=== PATIENT | female | born 1960 | race Caucasian/White ===

== ENCOUNTER 2018-04-21 16:18 | Emergency (ER) | payer OTHER ==
[~2018-04-21] VITALS: Ht 170.2 cm; Wt 60.5 kg
[~2018-04-21 16:18] MED LIST: BENA25TA8 PO; FEXO60TA PO; MEDR4PAK3 PO
[2018-04-21 16:25] VITALS: BP 151/82; PULSE 86; RESP 18; TEMP 98.3; O2SAT 97
--- NOTE | 2018-04-21 16:52 | PD ---
HPI Chief Complaint: Allergic/Adverse Reaction Time Seen by Provider: 16:37 Travel History International Travel<30 days: No Contact w/Intl Traveler<30days: No Traveled to known affect area: No History of Present Illness HPI Patient presents to the emergency department with neck swelling in the last hour. States that she had a CT of abdomen and pelvis done yesterday and was premedicated secondary to allergy to iodine. Advises that she was given 3 doses of prednisone at 13 hours, 7 hours, and 1 hour prior to procedure, as well as 2 Benadryl 25 mg tablets 1 hour ahead of scan. She denies sore throat, cough, rhinorrhea cough rash, drooling, shortness of breath, voice change, pruritus, fever, chills, no exposure to pets, no change in soaps/washing powder/ uterine/perfume. PFSH Past Medical History Hx Anticoagulant Therapy: No Cardiovascular Problems: Yes (HTN) Diabetes: No Diminished Hearing: No GERD: Yes Hypertension: Yes Ulcer: Yes Menopausal: Yes Dilation and Curettage (D&C): Yes Past Surgical History Section: Yes Gynecologic Surgery: Yes (MULTIPLE D&C'S, UTERINE ABLATION) Hysterectomy: No Social History Alcohol Use: Yes (OCCASIONAL) Tobacco Use: Yes (1 PPD) Substance Use: Yes Allergies-Medications (Allergen,Severity, Reaction): Coded Allergies: amitriptyline (Unverified Allergy, Severe, Anaphylaxis, 04/21/18) gabapentin (Unverified Allergy, Unknown, Anaphylaxis, 04/21/18) iodine (Unverified Allergy, Unknown, Hypertension, 04/21/18) potassium iodide (Unverified Allergy, Unknown, Hypertension, 04/21/18) povidone-iodine (Unverified Allergy, Unknown, Hypertension, 04/21/18) sodium iodide (Unverified Allergy, Unknown, Hypertension, 04/21/18) sodium iodide (Unverified Allergy, Unknown, Hypertension, 04/21/18) Reported Meds & Prescriptions Reported Meds & Active Scripts Active Ranitidine (Ranitidine HCl) 150 Mg Tab 150 Mg PO BID 5 Days Prednisone 20 Mg Tab 40 Mg PO DAILY 5 Days Take 40 mg (2 tablets) daily for 5 days Reported Glucosamine 1,500 Mg Tab 1,500 Mg PO DAILY Vitamin C (Ascorbic Acid) 250 Mg Chew 250 Mg CHEW DAILY Multi-Vitamin Daily (Multiple Vitamin) 1 Tab Tab 1 Tab PO DAILY Montelukast (Montelukast Sodium) 10 Mg Tab 10 Mg PO HS Metoprolol Tartrate 25 Mg Tab 25 Mg PO BID Fenofibrate 160 Mg Tab 160 Mg PO DAILY Review of Systems Except as stated in HPI: all other systems reviewed are Neg Physical Exam Narrative GENERAL: No acute distress. SKIN: Focused skin assessment warm/dry. HEAD: Atraumatic. Normocephalic. EYES: Pupils equal and round. No scleral icterus. No injection or drainage. ENT: No nasal bleeding or discharge. Mucous membranes pink and moist. No exudate, no uvula swelling. NECK: Trachea midline. No JVD. Positive anterior cervical lymphadenopathy ( swelling and tenderness to palpation). CARDIOVASCULAR: Regular rate and rhythm. No murmur appreciated. RESPIRATORY: No accessory muscle use. Clear to auscultation. Breath sounds equal bilaterally. GASTROINTESTINAL: Abdomen soft, non-tender, nondistended. Hepatic and splenic margins not palpable. MUSCULOSKELETAL: No obvious deformities. No clubbing. No cyanosis. No edema. NEUROLOGICAL: Awake and alert. No obvious cranial nerve deficits. Motor grossly within normal limits. Normal speech. PSYCHIATRIC: Appropriate mood and affect; insight and judgment normal. Data Data Last Documented VS Vital Signs Date Time Temp Pulse Resp B/P (MAP) Pulse Ox O2 Delivery O2 Flow Rate FiO2 04/21/18 19:15 90 18 146/85 (105) 97 Room Air 04/21/18 16:25 98.3 Orders Orders Complete Blood Count With Diff (04/21/18 16:46) Comprehensive Metabolic Panel (04/21/18 16:46) Iv Access Insert/Monitor (04/21/18 16:46) Ecg Monitoring (04/21/18 16:46) Oximetry (04/21/18 16:46) Diphenhydramine Inj (Benadryl Inj) (04/21/18 17:00) Methylprednisolone So Succ Inj (Solumedr (04/21/18 17:00) Famotidine Inj (Pepcid Inj) (04/21/18 17:00) Sodium Chloride 0.9% Flush (Ns Flush) (04/21/18 17:00) Soft Tissue Neck (04/21/18 16:46) Labs Laboratory Tests Test 04/21/18 17:05 White Blood Count 11.5 TH/MM3 Red Blood Count 4.37 MIL/MM3 Hemoglobin 14.4 GM/DL Hematocrit 42.6 % Mean Corpuscular Volume 97.3 FL Mean Corpuscular Hemoglobin 32.9 PG Mean Corpuscular Hemoglobin Concent 33.8 % Red Cell Distribution Width 11.9 % Platelet Count 253 TH/MM3 Mean Platelet Volume 7.8 FL Neutrophils (%) (Auto) 60.4 % Lymphocytes (%) (Auto) 33.5 % Monocytes (%) (Auto) 5.3 % Eosinophils (%) (Auto) 0.2 % Basophils (%) (Auto) 0.6 % Neutrophils # (Auto) 6.9 TH/MM3 Lymphocytes # (Auto) 3.9 TH/MM3 Monocytes # (Auto) 0.6 TH/MM3 Eosinophils # (Auto) 0.0 TH/MM3 Basophils # (Auto) 0.1 TH/MM3 CBC Comment DIFF FINAL Differential Comment Blood Urea Nitrogen 11 MG/DL Creatinine 0.78 MG/DL Random Glucose 99 MG/DL Total Protein 7.9 GM/DL Albumin 4.0 GM/DL Calcium Level 9.4 MG/DL Alkaline Phosphatase 66 U/L Aspartate Amino Transf (AST/SGOT) 24 U/L Alanine Aminotransferase (ALT/SGPT) 27 U/L Total Bilirubin 0.3 MG/DL Sodium Level 141 MEQ/L Potassium Level 3.5 MEQ/L Chloride Level 107 MEQ/L Carbon Dioxide Level 24.9 MEQ/L Anion Gap 9 MEQ/L Estimat Glomerular Filtration Rate 76 ML/MIN MDM Medical Decision Making Medical Screen Exam Complete: Yes Emergency Medical Condition: Yes Interpretation(s) Labs: Elevated WBC count (patient had 3 doses of steroids yesterday), chemistry within normal limits. Last Impressions Soft Tissue Neck X-Ray 04/21/18 5786 Signed Impressions: CONCLUSION: 1. Multilevel degenerative disc disease as above. 2. Otherwise, soft tissues are radiographically normal with no prevertebral so ft tissue thickening. No radiopaque foreign body Differential Diagnosis Allergic reaction, lymphadenitis, viral illness, oropharyngeal abscess Narrative Course Patient presents to the emergency department with next well and was premedicated for contrast CT scan on yesterday. She is afebrile, slightly hypertensive at 151/82, normal room air sat. IV access obtained patient placed on monitored given Pepcid 20 mg IV, Benadryl 25 mg IV, and methylprednisolone 125 mg IV. Soft tissue neck x-ray ordered. 1838: Swelling is decreased on physical exam, the patient advises that she feels better and feels as if the swelling has gone down. 1932: Discussed my conversation with Dr. Espinoza with patient. She states that she feels much better, swelling is gone down considerably, and that she feels okay to be discharged. Physician Communication Physician Communication Dr. Sin Espinoza: Discussed case with patient's PCP. Discussed workup and plan to DC with medications. Okay with this plan to have patient call office line if she has any issues over the weekend. Diagnosis Primary Impression: Allergic reaction to contrast media Qualified Codes: T50.8X5A - Adverse effect of diagnostic agents, initial encounter Patient Instructions: Allergies (ED), General Instructions Additional Instructions: 1. Meds as prescribed. 2. Benadryl 25-50 mg p.o. every 4-6 hours as needed. 3. Follow-up with Dr. Espinoza in 24- 48 hrs. Call his office for any problems over the weekend and he will be contacted by the answering service. 4. Return to the emergency department immediately for fever, shortness of breath, rash, facial/neck/tongue swelling, difficulty swallowing, or for any new/worrisome/ worsening symptoms. Med/Other Pt SpecificInfo: Prescription(s) given Scripts Ranitidine (Ranitidine) 150 Mg Tab 150 MG PO BID for Heartburn Management for 5 Days, #10 TAB 0 Refills Prov: Dary Watts MD 04/21/18 Prednisone (Prednisone) 20 Mg Tab 40 MG PO DAILY for 5 Days, #10 TAB 0 Refills Take 40 mg (2 tablets) daily for 5 days Prov: Dary Watts MD 04/21/18 Disposition: DISCHARGE HOME Condition: Stable Dary Watts MD April 21, 2018 16:52
[2018-04-21] MEDS ORDERED: FENO160T PO (16:59)
[2018-04-21] MEDS ORDERED: VITA250C3 CHEW (16:59)
[2018-04-21] MEDS ORDERED: GLUC15009 PO (16:59)
[2018-04-21] MEDS ORDERED: METO25TA3 PO (16:59)
[2018-04-21] MEDS ORDERED: MULT-65 PO (16:59)
[2018-04-21] MEDS ORDERED: MONT10TA4 PO (16:59)
[2018-04-21] MEDS ORDERED: methylPREDNISolone SOD SUCC 125 MG/2 ML VIAL IV PUSH ONE (17:00)
[2018-04-21] MEDS ORDERED: SODIUM CHLORIDE 0.9% FLUSH 10 ML FLUSH IV FLUSH PRN (17:00)
[2018-04-21] MEDS ORDERED: diphenhydrAMINE HCL 50 MG/ML VIAL IVP ONE (17:00)
[2018-04-21] MEDS ORDERED: FAMOTIDINE 20 MG/2 ML VIAL IV PUSH ONE (17:00)
--- NOTE | 2018-04-21 17:08 | RADRPT ---
EXAM DATE: 04/21/2018 5:00 PM EDT AGE/SEX: 57 years / Female INDICATIONS: Bilateral soft tissue swelling in neck today. Patient was premedicated for iodine aller gy during CT scan yesterday. CLINICAL DATA: This is the patient's initial encounter. Patient reports that signs and symptoms have been present for 1 day and indicates a pain score of 0/10. MEDICAL/SURGICAL HISTORY: None. None. COMPARISON: No prior [place] exams available for comparison. FINDINGS: Two-view examination of the soft tissues of the neck demonstrates the hypopharyngeal airway to have a grossly normal configuration. The trachea is midline. No radiopaque foreign bodies are seen. Multi level degenerative disc disease with loss of height from C3-4 through C6-7 and associated uncovertebr al ridging. CONCLUSION: 1. Multilevel degenerative disc disease as above. 2. Otherwise, soft tissues are radiographically normal with no prevertebral soft tissue thickening. No radiopaque foreign body Electronically signed by: Pasha Ho MD 04/21/2018 5:07 PM EDT
[2018-04-21 17:12] LABS: AUTOMATED NEUTROPHIL # 6.9 TH/MM3 (1.8-7.7); BASOPHIL # 0.1 TH/MM3 (0-0.2); BASOPHIL % 0.6 % (0.0-2.0); EOSINOPHIL % 0.2 % (0.0-4.0); HEMATOCRIT 42.6 % (35.0-46.0); HEMOGLOBIN 14.4 GM/DL (11.6-15.3); LYMPH % 33.5 % (9.0-44.0); LYMPHOCYTE # 3.9 TH/MM3 (1.0-4.8); MEAN CELL VOLUME 97.3 FL (80.0-100.0); MEAN CORPUSCULAR HEMOGLOBIN 32.9 PG (27.0-34.0); MEAN CORPUSCULAR HGB CONC 33.8 % (32.0-36.0); MEAN PLATELET VOLUME 7.8 FL (7.0-11.0); MONO % 5.3 % (0.0-8.0); MONOCYTE # 0.6 TH/MM3 (0-0.9); NEUT % 60.4 % (16.0-70.0); PLATELET COUNT 253 TH/MM3 (150-450); RED BLOOD COUNT 4.37 MIL/MM3 (4.00-5.30); RED CELL DISTRIBUTION WIDTH 11.9 % (11.6-17.2); WHITE BLOOD COUNT 11.5 TH/MM3 (4.0-11.0)
[2018-04-21 17:13] VITALS: O2SAT 97
[2018-04-21 17:27] LABS: CHLORIDE 107 MEQ/L (98-107); SODIUM (NA) 141 MEQ/L (136-145)
[2018-04-21 17:31] LABS: BICARBONATE 24.9 MEQ/L (21.0-32.0); CALCIUM 9.4 MG/DL (8.5-10.1); GLUCOSE,RANDOM 99 MG/DL (74-106)
[2018-04-21 17:32] LABS: BLOOD UREA NITROGEN 11 MG/DL (7-18)
[2018-04-21 17:35] LABS: ALT (GPT) 27 U/L (10-53); AST (GOT) 24 U/L (15-37); CREATININE 0.78 MG/DL (0.50-1.00); GLOMERULAR FILTRATION RATE 76 ML/MIN (>89)
[2018-04-21 17:36] LABS: TOTAL BILIRUBIN ADULT 0.3 MG/DL (0.2-1.0); TOTAL PROTEIN 7.9 GM/DL (6.4-8.2)
[2018-04-21 17:37] LABS: ALKALINE PHOSPHATASE 66 U/L (45-117)
[2018-04-21 18:05] VITALS: BP 144/89; PULSE 87; RESP 18; O2SAT 97
[2018-04-21] MEDS ORDERED: RANI150T PO (18:43)
[2018-04-21] MEDS ORDERED: PRED20 PO (18:43)
[2018-04-21 18:55] VITALS: RESP 18; O2SAT 97
[2018-04-21 19:15] VITALS: BP 146/85; PULSE 90; RESP 18; O2SAT 97
[2018-04-22] MEDS ORDERED: DIPH25CA PO (11:39)
== END 2018-04-21 19:50 | disposition home or self-care (01) ==
LOC: PHED 16:18
DX: R22.1 Localized swelling, mass and lump, neck (principal); T50.8X5A Adverse effect of diagnostic agents, initial encounter; I10 Essential (primary) hypertension; K21.9 Gastro-esophageal reflux disease without esophagitis; F17.200 Nicotine dependence, unspecified, uncomplicated
CPT/HCPCS: 70360; 80053; 85025; 96374; 96375; 99284; J1200; J2930

== ENCOUNTER 2018-04-22 11:02 | Emergency (ER) | payer OTHER ==
[~2018-04-22 11:02] MED LIST changes: -BENA25TA8 PO; +FENO160T PO; -FEXO60TA PO; +GLUC15009 PO; -MEDR4PAK3 PO; +METO25TA3 PO; +MONT10TA4 PO; +MULT-65 PO; +PRED20 PO; +RANI150T PO; +VITA250C3 CHEW
[2018-04-22 11:05] VITALS: BP 174/114; PULSE 147; RESP 22; TEMP 98; O2SAT 100
[2018-04-22] MEDS ORDERED: ADENOSINE IV SOLN 3 MG/ML 2 ML VIAL ONE ×2 (11:17→11:21)
[2018-04-22] MEDS ORDERED: DIPH25CA PO (11:39)
[2018-04-22 11:40] VITALS: BP 148/87; PULSE 93; RESP 18; O2SAT 99
[2018-04-22] MEDS ORDERED: SODIUM CHLOR 0.9% 1000 ML INJ 1,000 ML IV ONE (11:45)
[2018-04-22] MEDS ORDERED: ADENOSINE IV SOLN 3 MG/ML 2 ML VIAL IV PUSH ONE ×2 (11:45)
[2018-04-22] MEDS ORDERED: METOPROLOL TARTRATE 25 MG TAB PO ONE (11:45)
--- NOTE | 2018-04-22 11:54 | PD ---
HPI Chief Complaint: Cardiac Complaint Time Seen by Provider: 11:10 Travel History International Travel<30 days: No Contact w/Intl Traveler<30days: No Traveled to known affect area: No History of Present Illness HPI This is a 57-year-old female who presents to the emergency department with onset about an hour ago with palpitations feeling like her heart is racing in her chest, constant, severe associated with shortness of breath and some lightheadedness and dizziness. 2 days ago the patient had an abdominal CT with IV contrast. She has a history of contrast allergy and she was premedicated. 24 hours later she developed throat swelling and came to the emergency department. She was treated with steroids and Benadryl and was subsequently discharged. She returns today having been taking Benadryl and prednisone with onset of these new symptoms. She has never had symptoms like this before. PFSH Past Medical History Hx Anticoagulant Therapy: No Cardiovascular Problems: Yes Diabetes: No Diminished Hearing: No GERD: Yes Hypertension: Yes Medical other: Yes (ALLERGIES) Immunizations Current: Yes Ulcer: Yes Tetanus Vaccination: Unknown Influenza Vaccination: Yes Menopausal: Yes Dilation and Curettage (D&C): Yes Past Surgical History Section: Yes Gynecologic Surgery: Yes (MULTIPLE D&C'S, UTERINE ABLATION) Hysterectomy: No Social History Alcohol Use: Yes (OCCASIONAL) Tobacco Use: Yes (1 PPD) Substance Use: No Allergies-Medications (Allergen,Severity, Reaction): Coded Allergies: amitriptyline (Unverified Allergy, Severe, Anaphylaxis, 04/22/18) gabapentin (Unverified Allergy, Unknown, Anaphylaxis, 04/22/18) iodine (Unverified Allergy, Unknown, Hypertension, 04/22/18) potassium iodide (Unverified Allergy, Unknown, Hypertension, 04/22/18) povidone-iodine (Unverified Allergy, Unknown, Hypertension, 04/22/18) sodium iodide (Unverified Allergy, Unknown, Hypertension, 04/22/18) sodium iodide (Unverified Allergy, Unknown, Hypertension, 04/22/18) Reported Meds & Prescriptions Reported Meds & Active Scripts Active Ranitidine (Ranitidine HCl) 150 Mg Tab 150 Mg PO BID 5 Days Prednisone 20 Mg Tab 40 Mg PO DAILY 5 Days Take 40 mg (2 tablets) daily for 5 days Reported Diphenhydramine (Diphenhydramine HCl) 25 Mg Cap 25 Mg PO ONCE Glucosamine 1,500 Mg Tab 1,500 Mg PO DAILY Vitamin C (Ascorbic Acid) 250 Mg Chew 250 Mg CHEW DAILY Multi-Vitamin Daily (Multiple Vitamin) 1 Tab Tab 1 Tab PO DAILY Montelukast (Montelukast Sodium) 10 Mg Tab 10 Mg PO HS Metoprolol Tartrate 25 Mg Tab 25 Mg PO BID Fenofibrate 160 Mg Tab 160 Mg PO DAILY Review of Systems Except as stated in HPI: all other systems reviewed are Neg Physical Exam Narrative GENERAL:Well appearing, no acute distress SKIN: Focused skin assessment warm and dry. HEAD: Atraumatic. Normocephalic. EYES: Pupils equal and round. No injection or drainage. ENT: Moist mucous membranes NECK: Trachea midline. CARDIOVASCULAR: Tachycardic. No murmur appreciated. RESPIRATORY: Clear to auscultation. Breath sounds equal bilaterally. GASTROINTESTINAL: Abdomen soft, non-tender, nondistended. MUSCULOSKELETAL: No obvious deformities. NEUROLOGICAL: Awake and alert. No obvious cranial nerve deficits. Moving all extremities. PSYCHIATRIC: Appropriate mood and affect; insight and judgment normal. Data Data Last Documented VS Vital Signs Date Time Temp Pulse Resp B/P (MAP) Pulse Ox O2 Delivery O2 Flow Rate FiO2 04/22/18 12:10 99 Room Air 04/22/18 11:40 93 18 148/87 (107) 2.00 04/22/18 11:05 98.0 Orders Orders Adenosine Inj (Adenocard Inj) (04/22/18 11:17) Adenosine Inj (Adenocard Inj) (04/22/18 11:21) Adenosine Inj (Adenocard Inj) (04/22/18 11:45) Adenosine Inj (Adenocard Inj) (04/22/18 11:45) Sodium Chlor 0.9% 1000 Ml Inj (Ns 1000 M (04/22/18 11:45) Metoprolol Tartrate (Lopressor) (04/22/18 11:45) MDM Medical Decision Making Medical Screen Exam Complete: Yes Emergency Medical Condition: Yes Medical Record Reviewed: Yes (Patient was seen in the emergency department yesterday for an allergic reaction. She was given Benadryl and steroids and her symptoms improved.) Interpretation(s) Afebrile, tachycardic, hypertensive Differential Diagnosis Atrial fibrillation, atrial flutter, allergic reaction, AVNRT Narrative Course This is a 57-year-old female who presents to the emergency department with tachycardia. She has been taking Benadryl and prednisone in the setting of a recent allergic reaction. Today she has no symptoms of allergic reaction and has no respiratory complaints. She is placed on a monitor and an IV was established. Vagal maneuvers were attempted but unsuccessful. Patient was given 2 doses of 6 mg of IV adenosine and had successful cardioversion. She was given 25 mg of metoprolol. I suspect her symptoms are due to Benadryl. I recommended that she discontinue Benadryl but continue taking prednisone. Otherwise I do not think any diagnostics are warranted and I think she can safely be discharged home. Critical Care Narrative Aggregate critical care time was 35 minutes. Time to perform other separately billable procedures was not included in the critical care time. My time did not include minutes spent treating any other patients simultaneously or on activities that did not directly contribute to the patient's treatment. The services I provided to this patient were to treat and/or prevent clinically significant deterioration that could result in: Disability, I provided critical care services requiring my management, as noted below: Chart data review, documentation time, medication orders and management, vital sign assessments/reviewing monitor data, ordering and reviewing lab tests, ordering and interpreting/reviewing x-rays and diagnostic studies, care of the patient and discussion of the patient with the admitting physicians. Diagnosis Primary Impression: SVT (supraventricular tachycardia) Patient Instructions: General Instructions Additional Instructions: If you develop severe chest pain, shortness of breath, sweating, lightheadedness , dizziness or difficulty breathing return to the emergency department immediately. Stop taking Benadryl and continue taking your prednisone. Med/Other Pt SpecificInfo: Med Stopped Disposition: 01 DISCHARGE HOME Condition: Stable Sultana Desai MD April 22, 2018 11:53
[2018-04-22 12:25] VITALS: BP 127/82
--- NOTE | 2018-04-23 13:50 | EKG ---
Date Performed: 04/22/2018 Time Performed: 11:07:05 PTAGE: 57 years EKG: SUPRAVENTRICULAR TACHYCARDIA RATE 142 WITH NO DEFINITE P-WAVES SEEN. RHYTHM IS REGULAR. RIG HT VENTRICULAR CONDUCTION DISTURBANCE. MINOR NONSPECIFIC T-WAVE CHANGE Compared to previous tracing, the SVT is new, the T-wave changes inferiorly are new. These may be rate related. Clinical correlatio n recommended. ABNORMAL ECG PREVIOUS TRACING : 09/19/2013 19.57 DOCTOR: Abdon Horne Interpretating Date/Time 04/23/2018 13:49:19
== END 2018-04-22 12:43 | disposition home or self-care (01) ==
LOC: PHED 11:02
DX: I47.1 Supraventricular tachycardia (principal); I10 Essential (primary) hypertension; K21.9 Gastro-esophageal reflux disease without esophagitis; F17.200 Nicotine dependence, unspecified, uncomplicated
CPT/HCPCS: 93005; 96361; 96374; 99291; J0153; J7030